=== PATIENT | female | born 1995 | race Caucasian/White ===

== ENCOUNTER 2020-04-01 20:53 | Inpatient (IN) ==
[2020-04-01] MEDS ORDERED: OXYTOCIN/0.9 % SODIUM CHLORIDE 30 UNITS/500 ML BAG IV ONE (21:21)
[2020-04-01] MEDS ORDERED: ONDANSETRON 4 MG TAB.RAPDIS PO PRN (21:21)
[2020-04-01] MEDS ORDERED: RINGER'S SOLUTION,LACTATED 1,000 ML IV ONE (21:21)
[2020-04-01] MEDS ORDERED: RINGER'S SOLUTION,LACTATED 1,000 ML IV PRN (21:21)
[2020-04-01] MEDS ORDERED: PENICILLIN G POTASSIUM 5 MILLIONUNT in DEXTROSE 5 % IN WATER 100 ML IV ONE ×2 (21:30)
[2020-04-01] MEDS ORDERED: ONDANSETRON HCL/PF 2 MG/ML VIAL IV PRN (22:55)
[2020-04-01] MEDS ORDERED: BUPIVACAINE HCL/0.9 % NACL/PF 250 ML EP PRN (22:55)
[2020-04-01] MEDS ORDERED: NALOXONE HCL 1 MG/1 ML SYRG IV PRN (22:55)
[2020-04-01] MEDS ORDERED: fentaNYL CITRATE/PF 50 MCG/ML AMPUL IT SCH (23:00)
--- NOTE | 2020-04-01 23:51 | ANES ---
Anesthesia Pre Procedure Eval Vitals/Labs: Last Vital Signs Temp 36.9 C 04/01/20 22:12 Pulse 81 04/01/20 22:12 Resp 16 04/01/20 22:12 BP 120/79 04/01/20 22:12 Pulse Ox 99 04/01/20 22:12 HOME MEDICATIONS levothyroxine 25 mcg capsule 25 mcg PO DAILY 06/12/19 [Last Taken 04/01/20] liothyronine 5 mcg tablet 5 mcg PO DAILY 06/22/19 [Last Taken 03/31/20] Famotidine [Pepcid] 20 mg PO DAILY PRN 01/31/20 [Last Taken 03/31/20] Vits96/Iron Fum/Folic [ S] 1 tab PO DAILY 01/31/20 [Last Taken 03/31/20] progesterone micronized 200 mg capsule 200 mg VG HS 30 Days #30 cap 02/08/20 [Last Taken 03/31/20] breast pump See Rx Instructions .ROUTE .MEDSUPPLY #1 ea 03/12/20 [Last Taken Unk nown] Ascorbic Acid [Vitamin C] 500 mg PO DAILY 03/22/20 [Last Taken 04/01/20] Ferrous Sulfate [Iron] 325 mg PO DAILY 03/22/20 [Last Taken 03/31/20] Calcium Carbonate [Tums] 500 mg PO TID 03/24/20 [Last Taken 04/01/20] Allergies/Adverse Reactions: Allergies Allergy/AdvReac Type Severity Reaction Status Date / Time No Known Allergies Allergy Verified 03/26/20 15:13 - Planned Procedure Planned Procedure: LABOR Medication List Reviewed:: Yes Allergies Verified: Yes Medical History (Last Reviewed 04/01/20 @ 23:49 by Mario Quevedo CRNA) Anemia affecting (Acute) Onset Date: 01/29/20 , spontaneous Onset Date: 06/12/19 8wks labor Onset Date: ~01/31/20 Acid reflux Hypothyroid Onset Date: 2013 Scoliosis mild Arrhythmia Onset Date: ~2013 Holter- WNL Ovarian cyst Bilateral Surgical History (Last Reviewed 04/01/20 @ 23:49 by Mario Quevedo CRNA) H/O adenoidectomy Onset Date: Unknown H/O sinus surgery Onset Date: 03/2018 H/O wisdom tooth extraction History of esophagogastroduodenoscopy (EGD) removed extra pancreatic tissue Family History (Last Reviewed 04/01/20 @ 23:49 by Mario Quevedo CRNA) Father Alive and well Mother Hypertension Pituitary tumor Grandmother Kidney disease Hypertension - Family Anesthesia History Family History:: no untoward family reactions to anesthesia, no familial bleeding tendencies, no family history of clotting disorders, no family history of premature - Airway/Neck/Teeth Within Normal Limits:: Yes Teeth Condition: intact Neck Exam: full range of motion Mallampatti Score: 2 Thyromental (T-M) distance: > 6 cm Mandibulo Hyoid distance: > 3 cm - Respiratory Respiratory Physical: lungs clear Smoking Status: Never smoker Sleep Apnea currently treated: No Sleep Apnea by current assessment: No - Cardiovascular Tolerate Activity: Fair Heart Sounds: S1 & S2, Regular - Gastrointestinal NPO since: this pm - Anesthesia Assessment and Plan Narrative: History of scoliosis may present an issue. ASA Class: PS, II, E Anesthesia Type Plan: Epidural - CSE for labor analgesia
[2020-04-01] MEDS: DEXTROSE 5%-LACTATED RINGERS 1,000 ML IV PRN (23:55)
--- NOTE | 2020-04-02 00:08 | ANES ---
Post Anesthesia Discharge - Transfer of Care Transfer of Care handoff given to nurse: Yes - Discharge from PACU Discharge from PACU when meets criteria: Yes - Comfortable post CSE.
--- NOTE | 2020-04-02 00:09 | ANES ---
Anesthesia Procedure Note Procedure Note: ANESTHESIA PROCEDURE NOTE Date of Procedure: 04/01/2020 Time of procedure: 11:50 PM. Performed by: THIEN Rose CRNA, MSN Tool Polisher: Reva Whipple RN. Preprocedure diagnosis: Active labor, labor pain. Post procedure diagnosis: Same. Procedure:Epidural for labor analgesia L3-4. Indications: Labor pain. Findings: See below. Details of the procedure: The patient was placed on the side of the bed in sitting positionand prepped with DuraPrep then draped in a sterile fashion. Lid ocaine 1% was infiltrated to the skin and subcutaneous tissues at the level of the L3-4 interspace. An 18-gauge Touhy needle was used to approach the epidural space with loss of resistance technique. Once loss of resistance was achieved a 27-gauge spinal needle was passed through the epidural needle and CSF was contacted. After CSF returned, 20 mcg of fentanyl was injected in the spinal needle was removed the epidural catheter was then threaded approximately 4 cm in the epidural needle was removed. The catheter was taped in place and after careful aspiration 3 mL of 1.5% lidocaine with 1-200,000 epinephrine was injected without change in maternal heart rate or sensorium. . EBL: Minimal. Fluids: N/A. Specimen: N/A. Post procedure condition: The patient tolerated the procedure well with good relief. No complications were noted. Thank you for this consultation. Mario Quevedo CRNA, THIEN, MSN
--- NOTE | 2020-04-02 00:16 | ANES ---
Post Anesthesia Assessment - Vital Signs Vitals: Last Vital Signs Temp 36.9 C 04/01/20 22:12 Pulse 81 04/01/20 22:12 Resp 16 04/01/20 22:12 BP 120/79 04/01/20 22:12 Pulse Ox 99 04/01/20 22:12 Airway Patency: Normal - Mental Status Level Of Consciousness: Awake, Alert, Appropriate - Pain Level Pain Score: 0 - N/V Assessment Nausea/Vomiting Presence: None Dehydration:: No
[2020-04-02] MEDS: PENICILLIN G POTASSIUM 2.5 MILLIONUNT in DEXTROSE 5 % IN WATER 100 ML IV SCH ×8 (01:34→13:54)
[2020-04-02] MEDS: DEXTROSE 5%-LACTATED RINGERS 1,000 ML IV PRN (09:17)
--- NOTE | 2020-04-02 09:26 | HP ---
Chief Complaint - Chief Complaint Date of Service: 04/02/20 Time of Service: 08:40 Chief Complaint: My water broke History of Present Illness: 24 yo at 37w3d presents to L&D complaining of SROM at 2000 with increasing frequency and intensity of contractions. This complicated by anemia, hypothyroidism, and PTL since 28 wks. Rh positive Rubella immune GBS positive Medical History (Last Reviewed 04/02/20 @ 09:22 by Dominick Haddad DO) Anemia affecting (Acute) Onset Date: 01/29/20 , spontaneous Onset Date: 06/12/19 8wks labor Onset Date: ~01/31/20 Acid reflux Hypothyroid Onset Date: 2013 Scoliosis mild Arrhythmia Onset Date: ~2013 Holter- WNL Ovarian cyst Bilateral Surgical History: Surgical History (Last Reviewed 04/02/20 @ 09:22 by Dominick Haddad DO) H/O adenoidectomy Onset Date: Unknown H/O sinus surgery Onset Date: 03/2018 H/O wisdom tooth extraction History of esophagogastroduodenoscopy (EGD) removed extra pancreatic tissue Family History: Family History (Last Reviewed 04/02/20 @ 09:22 by Dominick Haddad DO) Father Alive and well Mother Hypertension Pituitary tumor Grandmother Kidney disease Hypertension Social History: (Last Reviewed 04/02/20 @ 09:22 by Dominick Haddad DO) Social History: Marital status: household members: spouse current occupational status: employed current occupation: PT cleaner assistant Highest level of school completed/degree received: Associate degree: academi Service: No Tobacco: Smoking Status: Never smoker Alcohol: alcohol intake: never Substance Use: substance use type: does not use Dietary Habits: caffeine: No Exercise: Physical activity type: none Review Of Systems (GEN) - Review of Systems Generalized/Overall Review: Present: No Symptoms Reported EENTM: Present: No Symptoms Reported Respiratory: Present: No Symptoms Reported Cardiac: Present: No Symptoms Reported Abdominal: Present: Abdominal Pain - contractions Genitourinary: Present: Other - leaking clear fluid vaginally Musculoskeletal: Present: No Symptoms Reported Neurological: Present: No Symptoms Reported Skin: Present: No Symptoms Reported Endocrine: Present: No Symptoms Reported Allergies/Adverse Reactions: Allergies Allergy/AdvReac Type Severity Reaction Status Date / Time No Known Allergies Allergy Verified 03/26/20 15:13 Home Medications: HOME MEDICATIONS levothyroxine 25 mcg capsule 25 mcg PO DAILY 06/12/19 [Last Taken 04/01/20] liothyronine 5 mcg tablet 5 mcg PO DAILY 06/22/19 [Last Taken 03/31/20] Famotidine [Pepcid] 20 mg PO DAILY PRN 01/31/20 [Last Taken 03/31/20] Vits96/Iron Fum/Folic [ S] 1 tab PO DAILY 01/31/20 [Last Taken 03/31/20] progesterone micronized 200 mg capsule 200 mg VG HS 30 Days #30 cap 02/08/20 [Last Taken 03/31/20] breast pump See Rx Instructions .ROUTE .MEDSUPPLY #1 ea 03/12/20 [Last Taken Unknown] Ascorbic Acid [Vitamin C] 500 mg PO DAILY 03/22/20 [Last Taken 04/01/20] Ferrous Sulfate [Iron] 325 mg PO DAILY 03/22/20 [Last Taken 03/31/20] Calcium Carbonate [Tums] 500 mg PO TID 03/24/20 [Last Taken 04/01/20] Exam - Exam Vital Signs: Vital Signs - Last Taken Temp 36.9 C 04/01/20 22:12 Pulse 81 04/01/20 22:12 Resp 16 04/01/20 22:12 BP 120/79 04/01/20 22:12 Pulse Ox 99 04/01/20 22:12 Constitutional: Present: Alert, Oriented x3, Cooperative, No distress ENT Exam: Present: hearing grossly normal Neck: Present: non-tender, supple, trachea midline. Absent: thyromegaly Breasts: Present: Exam deferred Respiratory: Present: lungs clear, no respiratory distress Cardiovascular/Chest: Present: normal peripheral pulses, regular rate, rhythm, no edema Abdomen: Present: soft, nontender, no rebound tenderness, other - gravid /Rectal: Present: Other - Cervix 3/90/-2, Nitrazine swab positive, vaginal pooling clear fluid Extremity: Present: non-tender, no pedal edema, no calf tenderness Skin Exam: Present: normal color, warm/dry, no cyanosis Neurologic: Present: alert, normal mood/affect, oriented x 3 Appearance: Present: appropriate appearance, appropriate insight Eye contact: Present: cooperative, good eye contact Thoughts: Present: normal thought pattern, no apparent hallucination, normal mood /affect Assessment/Plan - Assessment/Plan (1) Spontaneous rupture of amniotic membranes Assessment: Admit for pitocin augmentation of labor if needed and IV PCN per GBS protocol. Epidural PRN. Problem: Acute (2) Group B streptococcal carriage complicating Problem: Acute (3) Anemia affecting Problem: Chronic Qualifiers: Trimester: second trimester Qualified Code(s): O99.012 - Anemia complicating , second trimester
[2020-04-02] MEDS ORDERED: oxyCODONE HCL/ACETAMINOPHEN 1 TAB TABLET PO PRN (17:15)
[2020-04-02] MEDS ORDERED: IBUPROFEN 800 MG TABLET PO PRN (17:15)
[2020-04-02] MEDS ORDERED: NON-FORMULARY 1 DOSE DOSE (Breast Pump device) TP SCH (17:15)
[2020-04-02] MEDS ORDERED: OXYTOCIN/0.9 % SODIUM CHLORIDE 30 UNITS/500 ML BAG IV ONE (17:15)
[2020-04-02] MEDS ORDERED: BENZOCAINE/MENTHOL 81 SPRAY CAN TP PRN (17:15)
[2020-04-02] MEDS ORDERED: HYDROCORTISONE 30 APPL TUBE TP PRN (17:15)
[2020-04-02] MEDS ORDERED: GLYCERIN/WITCH HAZEL LEAF 40 APPL BOX TP PRN (17:15)
[2020-04-02] MEDS ORDERED: SENNOSIDES 8.6 MG TABLET PO PRN (17:15)
[2020-04-02] MEDS ORDERED: BISACODYL 10 MG SUPP.RECT RC PRN (17:15)
--- NOTE | 2020-04-02 17:19 | OR ---
Operative Report - Dictated Report Narrative: Spontaneous vaginal delivery of viable male at 1649 on 04/02/2020 with Apgars 9 and 9, weighing 3776 g in ELÍAS position with tight nuchal cord x1. Infant began vigorously crying approximately 30 seconds after . Cord clamping delayed approximately 1 minute Placenta delivered complete, intact, with three vessel cord Estimated blood loss: 100 mL Anesthesia: Epidural Lacerations: Less than 1 cm vaginal laceration with no repair needed. History for MU History for Definition: * The number of deliveries resulting in a live the patient experienced prior to current hospitalization * The previous delivery of live twins or any live multiple gestation is considered one live event. *If primagravida or nulliparous is documented select zero for the number of previous live births. Live Events: Live Events: 0
[2020-04-02] MEDS: IBUPROFEN 800 MG TABLET PO PRN (20:39)
[2020-04-02] MEDS: DOCUSATE SODIUM 100 MG CAPSULE PO SCH (20:40)
[2020-04-03] MEDS: LEVOTHYROXINE SODIUM 25 MCG TABLET PO SCH (07:31)
[2020-04-03] MEDS: IBUPROFEN 800 MG TABLET PO PRN (07:31)
--- NOTE | 2020-04-03 09:03 | PN ---
Subjective - Date and Time Seen Date: 04/03/20 Time: 09:03 Objective - Vitals Vitals: Last Vital Signs Temp 36.6 C 04/03/20 07:35 Pulse 51 L 04/03/20 07:35 Resp 14 04/03/20 07:35 BP 117/72 04/03/20 07:35 Pulse Ox 95 04/03/20 01:00 Patient denies complaints. Breast-feeding. Lochia wnl abdomen - soft, nontender Uterus -firm, at umbilicus - 1 No calf tenderness Impression: day #1 - s/p spontaneous vaginal delivery. Plan: Continue routine care Cauti Physician Documentation - Urinary Catheter Management Urethral (Monge) Date of Insertion: 04/02/20 Time of Insertion: 00:45 Assessment/Plan - Problems/Diagnosis (1) Spontaneous rupture of amniotic membranes Problem: Acute (2) Group B streptococcal carriage complicating Problem: Acute (3) Anemia affecting Problem: Chronic Qualifiers: Trimester: second trimester Qualified Code(s): O99.012 - Anemia complicating , second trimester
[2020-04-03] MEDS: DOCUSATE SODIUM 100 MG CAPSULE PO SCH ×2 (09:23→20:58)
[2020-04-03] MEDS: LIOTHYRONINE SODIUM 5 MCG TABLET PO SCH (09:23)
[2020-04-03] MEDS: CALCIUM CARBONATE 500 MG TAB.CHEW PO SCH (09:28)
[2020-04-03] MEDS: FERROUS SULFATE 325 MG TABLET PO SCH ×2 (09:28→18:05)
[2020-04-03] MEDS: ASCORBIC ACID 500 MG TABLET PO SCH (09:28)
[2020-04-03] MEDS: PRENATAL VITS96/IRON FUM/FOLIC 1 TAB TABLET PO SCH ×2 (09:28→18:05)
[2020-04-04] MEDS: DOCUSATE SODIUM 100 MG CAPSULE PO SCH (08:00)
[2020-04-04] MEDS: LEVOTHYROXINE SODIUM 25 MCG TABLET PO SCH (08:00)
[2020-04-04] MEDS: LIOTHYRONINE SODIUM 5 MCG TABLET PO SCH (08:00)
[2020-04-04] MEDS: FERROUS SULFATE 325 MG TABLET PO SCH ×2 (08:07→18:32)
[2020-04-04] MEDS: CALCIUM CARBONATE 500 MG TAB.CHEW PO SCH ×5 (08:07→18:29)
[2020-04-04] MEDS: ASCORBIC ACID 500 MG TABLET PO SCH ×2 (08:07→18:32)
[2020-04-04] MEDS: PRENATAL VITS96/IRON FUM/FOLIC 1 TAB TABLET PO SCH ×2 (08:07→18:33)
--- NOTE | 2020-04-04 09:03 | PN ---
Subjective - Date and Time Seen Date: 04/04/20 Time: 09:03 Objective - Vitals Vitals: Last Vital Signs Temp 36.7 C 04/04/20 08:09 Pulse 61 04/04/20 08:09 Resp 14 04/04/20 08:09 BP 111/70 04/04/20 08:09 Pulse Ox 99 04/04/20 08:09 Patient denies complaints. Breast-feeding. Lochia wnl abdomen - soft, nontender Uterus -firm, at umbilicus - 2 No calf tenderness Impression: day #2 - s/p spontaneous vaginal delivery. Plan: Routine discharge instructions Cauti Physician Documentation - Urinary Catheter Management Urethral (Monge) Date of Insertion: 04/02/20 Time of Insertion: 00:45 Assessment/Plan - Problems/Diagnosis (1) Spontaneous rupture of amniotic membranes Problem: Acute (2) Group B streptococcal carriage complicating Problem: Acute (3) Anemia affecting Problem: Chronic Qualifiers: Trimester: second trimester Qualified Code(s): O99.012 - Anemia complicating , second trimester
[2020-04-04] MEDS: IBUPROFEN 800 MG TABLET PO PRN (12:36)
[2020-04-04 14:44] VITALS: BP 109/65
== END 2020-04-04 23:34 | disposition home or self-care (01) | DRG 806 ==
LOC: OBCLINIC 20:53 → OB 21:13
PROVIDERS: ADMIT Obstetrics & Gynecology; ATTEND Obstetrics & Gynecology